=== PATIENT | female | born 1950 | race Caucasian/White ===

== ENCOUNTER 2023-07-27 12:12 | Emergency (ER) | payer MEDICARE ==
[~2023-07-27] VITALS: Ht 154.9 cm; Wt 68.0 kg
[2023-07-27] VITALS (13 sets, daily range): BP systolic 89–138; BP diastolic 58–83
== END 2023-07-27 16:30 | disposition home or self-care (01) ==
LOC: ED 12:12
DX: S80.12XA Contusion of left lower leg, initial encounter (principal); I10 Essential (primary) hypertension; K21.9 Gastro-esophageal reflux disease without esophagitis; E03.9 Hypothyroidism, unspecified; W22.8XXA Striking against or struck by other objects, initial encounter; M79.605 Pain in left leg